=== PATIENT | male | born 1970 | race Caucasian/White ===

== ENCOUNTER 2016-04-19 20:47 | Emergency (ER) | payer MEDICAID ==
[~2016-04-19] VITALS: Ht 170.2 cm; Wt 89.4 kg
[2016-04-19 21:37] VITALS: BP 156/111
--- NOTE | 2016-04-20 01:50 | NUR ---
PT TAKEN TO OF
--- NOTE | 2016-04-20 01:55 | NUR ---
CAME IN WITH C/O OF COUGH, SORETHROAT FOR A MONTH NOW, AND RASHES ON HIS ARMS, AND HANDS FOR 4 DAYS NOW.
--- NOTE | 2016-04-20 02:10 | NUR ---
Nara chao in [facility] - 04/20/16 at [address] Saunders evaluating patient at bedside.
--- NOTE | 2016-04-20 02:10 | NUR ---
Dr. Saunders evaluating patient
[2016-04-20 02:19] VITALS: BP 128/90
--- NOTE | 2016-04-20 02:19 | NUR ---
Patient discharged with v/s stable. Written and verbal after care instructions given and explained. Patient alert, oriented and verbalized understanding of instructions. Ambulatory with steady gait. All questions addressed prior to discharge. ID band removed. Patient advised to follow up with PMD. Rx of LISINOPRIL,AUGMENTIN given. Patient educated on indication of medication including possible reaction and side effects. Opportunity to ask questions provided and answered.
== END 2016-04-20 02:19 | disposition home or self-care (01) ==
LOC: MED 20:47
DX: J02.9 Acute pharyngitis, unspecified (principal); F17.210 Nicotine dependence, cigarettes, uncomplicated; F10.20 Alcohol dependence, uncomplicated
CPT/HCPCS: 99283

== ENCOUNTER 2017-03-01 06:25 | Emergency (ER) | payer OTHER, MEDICAID ==
[~2017-03-01] VITALS: Ht 170.2 cm; Wt 85.0 kg
[2017-03-01 06:30] VITALS: BP 161/108
--- NOTE | 2017-03-01 06:30 | NUR ---
PATIENT IS A 47 Y/O MALE WHO PRESENTS TO THE ED C/O LEFT SHOULDER PAIN. PT STATES, "MY SHOULDER HAS BEEN HURTING FOR ABOUT 2 DAYS." PT REPORTS 10/10 SHARP LEFT SHOULDER PAIN THAT RADIATES TO THE LOWER BACK AND ARM. NOTED LEFT FACIAL DROOP. GUARDED HOLDING LEFT ARM. PT DENIES CP, SOB, N/V/D. PT AAOX4, RR EVEN/UNLABORED. PT REPOSITIONED FOR COMFORT, BED IN LOWEST POSITION. ER MD DR. GARCIA NOTIFIED. WILL CONTINUE TO MONITOR.
[2017-03-01] MEDS ORDERED: LISI-420 PO (06:36)
[2017-03-01] MEDS ORDERED: PRED20TA5 PO (06:36)
[2017-03-01 06:44] VITALS: BP 159/100
--- NOTE | 2017-03-01 06:44 | NUR ---
Patient discharged with v/s stable. Written and verbal after care instructions given and explained. Patient alert, oriented and verbalized understanding of instructions. Ambulatory with steady gait. All questions addressed prior to discharge. ID band removed. Patient advised to follow up with PMD. Rx of NORCO AND NAPROXEN given. Patient educated on indication of medication including possible reaction and side effects. Opportunity to ask questions provided and answered.
== END 2017-03-01 06:44 | disposition home or self-care (01) ==
LOC: MED 06:25
DX: S29.012A Strain of muscle and tendon of back wall of thorax, initial encounter (principal); M79.602 Pain in left arm; I10 Essential (primary) hypertension; Z79.899 Other long term (current) drug therapy; X58.XXXA Exposure to other specified factors, initial encounter; Y93.89 Activity, other specified; Y92.89 Other specified places as the place of occurrence of the external cause; Y99.8 Other external cause status
CPT/HCPCS: 99283